=== PATIENT | male | born 1975 | race Caucasian/White ===

== ENCOUNTER 2016-10-28 10:56 | Day surgery (SDC) | payer OTHER ==
[~2016-10-28 10:56] MED LIST: ACETAMINOPHEN 500 MG TAB PO ONE; BUPIVACAINE/EPI 0.25% 30 ML SDV ONE; EPINEPHrine 30 MG/30 ML MDV ONE; LIDOCAINE 2% 5 ML SDV ONE; PREGABALIN 150 MG CAP PO ONE; PROPOFOL 200 MG/20 ML VIAL ONE; PROPOFOL/EMULSION 500 MG/50 ML BOTTLE IV ONE; ROCURONIUM 50 MG/5 ML VIAL ONE; ceFAZolin 2 GM/DEXTROSE 100 ML IV ONE; fentaNYL 250 MCG/5 ML INJ ONE
[2016-10-28] MEDS ORDERED: PREGABALIN 150 MG CAP ONE (11:20)
[2016-10-28] MEDS ORDERED: ACETAMINOPHEN 325 MG TAB ONE (11:21)
[2016-10-28] MEDS ORDERED: CEFAZOLIN 2 GM/DEXTROSE/100 ML BAG IV ONE (11:21)
[2016-10-28] MEDS ORDERED: ACETAMINOPHEN 500 MG TAB ONE (11:27)
[2016-10-28] MEDS ORDERED: MIDAZOLAM 2 MG/2 ML VIAL ONE (11:49)
[2016-10-28] MEDS ORDERED: LR 1,000 ML IV ONE (12:28)
[2016-10-28] MEDS ORDERED: DEXAMETHASONE 4 MG/ML VIAL ONE (12:38)
[2016-10-28] MEDS ORDERED: ONDANSETRON 4 MG/2 ML VIAL ONE (12:38)
[2016-10-28] MEDS ORDERED: PROPOFOL/EMULSION 500 MG/50 ML BOTTLE IV ONE (13:32)
[2016-10-28] MEDS ORDERED: fentaNYL 100 MCG/2 ML INJ ONE (14:46)
== END 2016-10-28 17:10 | disposition home or self-care (01) ==
LOC: FSGY 10:56
PROVIDERS: ATTEND Orthopaedic Surgery Sports Medicine
PROC: 0SQ94ZZ Repair Right Hip Joint, Percutaneous Endoscopic Approach (ICD-10-PCS; principal; 2016-10-28 11:58)
DX: M24.851 Other specific joint derangements of right hip, not elsewhere classified (principal); Q65.89 Other specified congenital deformities of hip
CPT/HCPCS: 29914; 76001; C1769; C1713; J0690; J1100; J2250; J2405; J2704; J3010